=== PATIENT | male | born 2000 | race Two or more races ===

== ENCOUNTER 2023-07-13 06:54 | Emergency (ER) | payer BC ==
[~2023-07-13] VITALS: Ht 175.3 cm; Wt 72.6 kg
[2023-07-13 07:23] VITALS: BP 117/68; TEMP 98
[2023-07-13] MEDS ORDERED: IBUP-1955 PO (07:42)
[2023-07-13] MEDS ORDERED: CEPH500C2 PO (07:42)
[2023-07-13] MEDS ORDERED: KETOROLAC TROMETHAMINE 15 MG/ML VIAL ONE (07:43)
[2023-07-13] MEDS: KETOROLAC TROMETHAMINE 15 MG/ML VIAL IM ONE (07:47)
[2023-07-13 07:55] VITALS: O2SAT 98
== END 2023-07-13 08:08 | disposition home or self-care (01) ==
LOC: ER 07:06
DX: L03.032 Cellulitis of left toe (principal); Z79.899 Other long term (current) drug therapy
CPT/HCPCS: 99283; 96372; J1885